=== PATIENT | male | born 1980 | race Caucasian/White ===

== ENCOUNTER 2025-03-05 20:23 | Emergency (ER) | payer OTHER, SELFPAY ==
[2025-03-05 20:26] VITALS: BP 171/112; PULSE 86; RESP 18; TEMP 36.3; O2SAT 99
--- NOTE | 2025-03-05 20:47 | ED.WOUNDLAC ---
HPI - Wound/Laceration General Chief Complaint: Wound/Laceration Stated Complaint: laceration Time Seen by Provider: 03/05/25 20:46 Source: patient Mode of arrival: ambulatory Limitations: no limitations History of Present Illness HPI narrative: Patient is a 45-year-old male with a right thumb extensor surface laceration from a knife while working at work. This was an accident. He said he felt it hit the bone. Bleeding has subsided in the emergency room. He is not up-to-date on his tetanus shot. Onset (ago): hour(s) ( One) Location: other ( right thumb at the MCP joint) Place: work Patient tetanus UTD: No Context: accidental Associated symptoms: pain Treatments prior to arrival: bandage Related Data Allergies Allergy/AdvReac Type Severity Reaction Status Date / Time No Known Allergies Allergy Verified 03/05/25 20:31 Review of Systems Review of Systems: All systems reviewed & are unremarkable except as noted in HPI and below Constitutional: Constitutional: Reports no additional constitutional complaints Eyes: Eyes: Reports no additional eye complaints ENT: Reports system reviewed and no additional complaints, except as documented Cardiovascular: Cardiovascular: Reports no additional cardiovascular complaints Respiratory: Respiratory: Reports no additional respiratory complaints Gastrointestinal: Gastrointestinal: Reports no additional gastrointestinal complaints Genitourinary: Genitourinary: Reports no additional male genitourinary complaints Musculoskeletal: Musculoskeletal: Reports no additional musculoskeletal complaints Integumentary/Breasts: Skin/Breast: Reports system reviewed and no additional complaints, except as docu Neurologic: Reports system reviewed and no additional complaints, except as documented Psychiatric: Psychiatric: Reports no additional psychiatric complaints Endocrine: Endocrine: Reports no additional endocrine complaints Hematologic/Lymphatic: Hematologic/Lymphatic: Reports no additional hematologic/lymphatic complaints Allergic/Immunologic: Allergic/Immunologic: Reports no additional allergic/immunologic complaints Exam Const: General: healthy appearing Nutritional Appearance: well nourished Orientation/consciousness: patient oriented x3 HENMT: Head: normal to inspection Ears: external ears normal Face/Nose/Sinus: Normal external nose present Eyes: Conjunctivae: conjunctivae normal Pupils: Equal, round and reactive pupils present EOM: EOMs intact bilaterally Neck: Neck: normal visual inspection Chest: Chest palpation & inspection: normal inspection of the chest Resp: Effort & Inspection: normal respiratory effort and not labored Auscultation: clear to auscultation bilaterally and no crackles Cardio: Rate: regular rate Rhythm: regular rhythm Heart sounds: no murmurs GI: Inspection: non-distended GI Palp: Yes Soft to palpation and No Tenderness to palpation present (GI) Auscultation: normal bowel sounds Back/Spine/Pelvis: Back: no CVA tenderness Skin: General skin exam: normal color Rashes: no rashes Wounds: wound noted Other: right thumb extensor surface MCP joint has a linear 2 cm laceration with a midline depth appreciated of the wound and surrounding linear area is more superficial; bleeding has subsided; no signs of infection Neuro: General: patient oriented x3 Cranial nerves: Yes Nystagmus not present Speech: normal speech Extrem: General: normal to inspection Psych: Mental Status: mental status grossly normal Affect: normal affect Attitude: cooperative Course Vital Signs Vital signs: Vital Signs Temperature 36.3 C L 03/05/25 20:26 Pulse Rate 86 03/05/25 20:26 Respiratory Rate 18 03/05/25 20:26 Blood Pressure 171/112 H 03/05/25 20:26 Pulse Oximetry 99 03/05/25 20:26 Oxygen Delivery Room Air 03/05/25 20:26 Temperature 36.3 C L 03/05/25 20:26 Pulse Rate 86 03/05/25 20:26 Respiratory Rate 18 03/05/25 20:26 Blood Pressure 171/112 H 03/05/25 20:26 Pulse Oximetry 99 03/05/25 20:26 Oxygen Delivery Room Air 03/05/25 20:26 Procedures Other Procedure Procedure 1: Other Procedure: Right thumb laceration: Adhesive glue placed on the lesion for closure, allowed to dry and tested the joint for continued closure of the lesion , patient tolerated procedure well and no complications MDM - Wound/Laceration MDM Narrative Medical decision making narrative: patient is a 45-year-old male with a right thumb laceration. We will use adhesive glue. We will give a tetanus shot. We will give antibiotics. Discharge Plan Discharge Clinical Impression: Laceration Patient Disposition: Home Condition: Stable Instructions: Antibiotic Form, Skin Adhesive Care (ED) Patient Language: Japanese Prescriptions: New cephalexin 500 mg capsule 500 mg PO BID 7 Days Qty: 14 0RF Follow-up/Referrals: UNKNOWN,DOCTOR [Non-Staff] -
--- OUTSIDE RECORDS SUMMARY | 2025-03-05 21:16 | XMS_ITS | Clinical Summary ---
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
--- OUTSIDE RECORDS SUMMARY | 2025-03-05 21:16 | XMS_ITS | Encounter Summary ---
Author Organization [facility] Address 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 Gender Identity Not on file Sexual Orientation Not on file documented as of this encounter Plan of Treatment Not on file documented as of this encounter Procedures Procedure Name Priority Date/Time Associated Diagnosis Comments URINALYSIS WITH REFLEX CULTURE Stat 01/26/2008 7:29 AM CDT URINALYSIS W/REFLEX MICROSCOPIC Stat 01/26/2008 7:[address] ABDOMEN PELVIS WO CONTRAST Routine 01/26/2008 7:10 AM CDT CBC WITH DIFFERENTIAL Stat 01/26/2008 7:01 AM CDT COMPREHENSIVE METABOLIC PANEL Stat 01/26/2008 7:01 AM CDT documented in this encounter Results * URINALYSIS (01/26/2008 7:29 AM CDT) CLARITY UA Clear Clear [facility] BILIRUBIN UA Negative Negative [facility] PROTEIN UA Negative Negative [facility] LEUKOCYTE ESTERASE UA Negative Negative [facility] SPECIFIC GRAVITY UA 1.010 1.001 - 1.035 [facility] GLUCOSE UA Negative Negative [facility] BLOOD UA Negative Negative [facility] COLOR UA Yellow [facility] NITRITE UA Negative Negative [facility] UROBILINOGEN UA <1 <=1 mg/dL [facility] PH UA 6.5 5.0 - 8.0 [facility] KETONES UA Negative Negative [facility] 01/26/2008 7:29 AM CDT 01/26/2008 7:33 AM CDT Isael Rogel MD URINE ORDERABLES Final Result Performing Organization Address [facility] Co de Phone Number [facility] [address] [place] [address] * URINALYSIS WITH REFLEX CULTURE (01/26/2008 7:29 AM CDT) URINE CULTURE ORDER Not indicated [facility] Comment: Criteria for a reflex culture include one or more of the following: Abnormal nitrite, leukocyte esterase, WBCs or RBCs. Lack of qualifying criteria does not exclude the possiblity of a urinary tract infection. Dilute urine, drug interference, etc. may decrease the sensitivity of the criteria analytes. Urine specimen (specimen) 01/26/2008 7:29 AM CDT 01/26/2008 7:33 AM CDT us Isael Rogel MD URINE ORDERABLES Final Result Performing Organization Address [facility] Co de Phone Number [facility] [address] [place] [address] * CT ABDOMEN PELVIS WO CONTRAST (01/26/2008 7:10 AM CDT) Anatomical Region Laterality Modality Abdomen Other 01/26/2008 7:10 AM CDT Narrative 01/26/2008 7:39 AM CDT [place] [id number] [place], [place] [address] Admit Date: 01/26/2008 ROMAIN BANGURA Sex: M Admit Prov: ER, AUTHORIZED P Date: 1980 Primary Care Prov: RADHA MENDOZA CMRN: [id number] Room: ER-A N: [address] [place] [address] IMAGING SERVICES Ordering Prov: N/A Accession Number: [id number] Interpretation CT abdomen and pelvis without contrast 01/26/2008 History: Back pain. Technique: Contiguous 5 mm unenhanced images were obtained through the abdomen and pelvis Findings: A punctate calculus at the right UVJ is visualized which causes mild right hydronephrosis and hydroureter. Mild right perirenal stranding is seen. The left kidney is unremarkable without calculus. The liver, spleen, pancreas and adrenal glands have unremarkable nonenhanced appearance. The appendix is visualized and appears normal. No intraperitoneal free air is seen. Small subcentimeter periaortic and groin lymph nodes are visualized. There is no bowel obstruction. Small amount of free fluid is noted in the pelvis. The visualized bony structures are intact. Impression: A tiny right UVJ calculus which causes mild hydronephrosis and hydroureter. . Dictated by: VELVET VARGAS 01/26/2008 07:35 Electronically signed by: VELVET VARGAS 01/26/2008 07:39 Procedure Note Velvet Vargas - 01/26/2008 [place] [id number] [place], [place] [address] Admit Date: 01/26/2008 ROMAIN BANGURA Sex: M Admit Prov: ER, AUTHORIZED P Date: 1980 Primary Care Prov: RADHA MENDOZA CMRN: [id number] Room: ER-A N: [address] [place] [address] IMAGING SERVICES Ordering Prov: N/A Interpretation CT abdomen and pelvis without contrast 01/26/2008 History: Back pain. Technique: Contiguous 5 mm unenhanced images were obtained throughthe abdomen and pelvis Findings: A punctate calculus at the right UVJ is visualized whichcauses mild right hydronephrosis and hydroureter. Mild right perirenalstranding is seen. The left kidney is unremarkable without calculus. Theliver, spleen, pancreas and adrenal glands have unremarkable nonenhanced appearance. The appendix is visualized and appears normal. No intraperitoneal free air is seen. Small subcentimeter periaortic andgroin lymph nodes are visualized. There is no bowel obstruction. Smallamount of free fluid is noted in the pelvis. The visualized bony structuresare intact. Impression: A tiny right UVJ calculus which causes mild hydronephrosis andhydroureter. . Dictated by: VELVET VARGAS 01/26/2008 07:35 Electronically signed by: VELVET VARGAS 01/26/2008 07:39 us Isael Rogel MD CT ORDERABLES Final Result * (ABNORMAL) CBC WITH DIFFERENTIAL (01/26/2008 7:01 AM CDT) HEMOGLOBIN 14.7 13.6 - 16.5 g/dL [facility] PLATELETS 258 140 - 350 K/uL [facility] WBC 13.4(H) 4.0 - 9.8 K/uL [facility] RDW 12.3 11.5 - 14.5 % [facility] HEMATOCRIT 43.2 40.0 - 48.0 % [facility] MCH 30.6 27.2 - 32.6 pg [facility] MPV 11.2 9.3 - 12.4 fL [facility] RBC 4.81 4.50 - 5.40 M/uL [facility] MCV 89.8 82.0 - 99.0 fL [facility] RDW-STDEV 39.8 37.1 - 48.7 fL [facility] MCHC 34.0 31.5 - 35.5 % [facility] NEUTROPHILS 85(H) 45 - 70 % [facility] NEUTROPHIL ABSOLUTE 11.35(H) 1.90 - 7.00 K/uL [facility] EOSINOPHILS 0 0 - 7 % [facility] EOSINOPHIL ABSOLUTE 0.02 0.00 - 0.70 K/uL [facility] LYMPHOCYTES 6(L) 16 - 45 % [facility] LYMPHOCYTE ABSOLUTE 0.83 0.70 - 4.50 K/uL [facility] BASOPHILS 0 0 - 2 % [facility] BASOPHILS ABSOLUTE 0.02 0.00 - 0.20 K/uL [facility] MONOCYTES 9 3 - 13 % [facility] MONOCYTE ABSOLUTE 1.19 0.10 - 1.30 K/uL [facility] Blood specimen (specimen) 01/26/2008 7:01 AM CDT 01/26/2008 7:09 AM CDT us Isael Rogel MD HEMATOLOGY ORDERABLES Edited INTERFACE SYSTEM Refer to clinic/hospital department [facility] [address] [place], [place] [address] * (ABNORMAL) COMPREHENSIVE METABOLIC PANEL (01/26/2008 7:01 AM CDT) CHLORIDE 101 96 - 108 mmol/L [facility] CREATININE 1.44(H) 0.67 - 1.17 mg/dL [facility] ALT 17 0 - 41 U/L [facility] SODIUM 137 135 - 145 mmol/L [facility] ALKALINE PHOSPHATASE 65 40 - 129 U/L [facility] CO2 26 22 - 30 mmol/L [facility] BILIRUBIN TOTAL 0.7 0.2 - 1.0 mg/dL [facility] POTASSIUM 4.3 3.5 - 4.9 mmol/L [facility] TOTAL PROTEIN 7.2 6.3 - 8.6 g/dL [facility] GLUCOSE 116(H) 65 - 99 mg/dL [facility] AST 18 12 - 38 U/L [facility] BUN 13 6 - 20 mg/dL [facility] CALCIUM 8.9 8.4 - 10.2 mg/dL [facility] ALBUMIN 4.3 3.4 - 4.8 g/dL [facility] GFR, >60 >=60 mL/min/1. 7 sq meter [facility] GFR 58(L) >=60 mL/min/1. 7 sq meter [facility] Comment: Estimated GFR rate interpretative information for both Americans and non- Americans is available on the [facility] Intranet at: [email or web address] Select: Lab Policies and Procedures Select: Reference Ranges - GFR Blood specimen (specimen) 01/26/2008 7:01 AM CDT 01/26/2008 7:09 AM CDT us Isael Rogel MD CHEMISTRY ORDERABLES Edited [facility] [address] [place], [place] [address] documented in this encounter Visit Diagnoses Not on filedocumented in this encounter
[2025-03-05] MEDS: TETANUS,DIPHTHERIA,AC PERTUSSIS ADULT 0.5 ML (ADACEL) IM (21:22)
--- NOTE | 2025-03-05 21:36 | PC.NURSE ---
ERP aware of pt's vital signs. No new orders. Pt encouraged to obtain regular blood pressure checks and follow up with PCP if elevated blood pressure continues.
--- NOTE | 2025-03-05 21:50 | PC.NURSE ---
Skin glue has dried. Pt bent and straightened thumb several times. Glue held, did not come open. Pt instructed to leave wound open to air per ERP.
[2025-03-05 21:58] VITALS: BP 141/98; PULSE 74; RESP 16; O2SAT 98
== END 2025-03-05 22:00 | disposition home or self-care (01) ==
PROVIDERS: Emergency Provider Emergency Medicine; PCP Family Medicine
DX: S61.011A Laceration without foreign body of right thumb without damage to nail, initial encounter (principal); W26.0XXA Contact with knife, initial encounter; Z23 Encounter for immunization
CPT/HCPCS: 12001; 90471; 90715; 99283